=== PATIENT | male | born 1985 | race Caucasian/White ===

== ENCOUNTER 2019-05-09 14:04 | Emergency (ER) | payer OTHER ==
[2019-05-09 15:07] LABS: APPEARANCE,URINE SLIGHTLY-CLOUDY; BILIRUBIN,URINE NEGATIVE (NEGATIVE); COLOR,URINE AMBER; GLUCOSE, URINE NEGATIVE (NEGATIVE); KETONES,URINE 20 mg/dL (NEGATIVE); LEUKOCYTE ESTERASE,URINE NEGATIVE (NEGATIVE); NITRITE,URINE NEGATIVE (NEGATIVE); PROTEIN,URINE 100 mg/dL (NEGATIVE); URINE SPECIFIC GRAVITY 1.025
[2019-05-09 16:01] LABS: ABSOLUTE BASOPHILS # (AUTO) 0.1 10^3/uL (0.0-0.2); ABSOLUTE LYMPHOCYTES (AUTO) 2.5 10^3/uL (0.5-4.7); ABSOLUTE MONOCYTES (AUTO) 0.6 10^3/uL (0.1-1.4); ABSOLUTE NEUT (AUTO) 8.5 10^3/uL (1.7-8.2); EOSINOPHILS % (AUTO) 0.4 % (0-6); HEMATOCRIT 49.1 % (37.9-51.0); HEMOGLOBIN 16.7 g/dL (13.5-17.0); LYMPHOCYTES % (AUTO) 21.4 % (13-45); MEAN CORPUSCULAR HEMOGLOBIN 27.2 pg (27.0-33.4); MEAN CORPUSCULAR VOLUME 80 fl (80-97); MONOCYTES % (AUTO) 4.7 % (3-13); PLATELET COUNT 265 10^3/uL (150-450); RED BLOOD COUNT 6.14 10^6/uL (4.35-5.55); RED CELL DISTRIBUTION WIDTH 14.1 % (11.5-14.0); SEGMENTED NEUTROPHILS % (AUTO) 72.5 % (42-78); TOTAL CELLS COUNTED % (AUTO) 100 %; WHITE BLOOD COUNT 11.7 10^3/uL (4.0-10.5)
[2019-05-09 16:18] LABS: ALANINE AMINOTRANSFERASE 64 U/L (21-72); ALBUMIN 5.1 g/dL (3.5-5.0); ALKALINE PHOSPHATASE 79 U/L (38-126); ANION GAP 15 (5-19); ASPARTATE AMINO TRANSFERASE 41 U/L (17-59); BILIRUBIN,DIRECT 0.4 mg/dL (0.0-0.4); BILIRUBIN,TOTAL 1.8 mg/dL (0.2-1.3); BLOOD UREA NITROGEN 14 mg/dL (7-20); CARBON DIOXIDE 25 mmol/L (22-30); CHLORIDE 103 mmol/L (98-107); GLUCOSE 113 mg/dL (75-110); SODIUM 143.1 mmol/L (137-145); TOTAL PROTEIN 9.1 g/dL (6.3-8.2)
[2019-05-09 16:20] LABS: ACETAMINOPHEN < 10 ug/mL (10-30); ALCOHOL < 10 mg/dL (NONE DETECTED); SALICYLATE < 1.0 mg/dL (2.0-20.0)
[2019-05-09] MEDS ORDERED: LORAZEPAM 1 MG TABLET PO ONE ×2 (16:51→20:13)
--- NOTE | 2019-05-09 16:54 | PSYCHOLOGICAL NOTE ---
Psych Note - Psych Note Date seen by psych provider: 05/09/19 Time seen by psych provider: 15:30 Psych Note: Impression\plan: Patient is recommended for overnight mental health observation; this is voluntary. Patient does not meet IVC criteria per [facility] 122C as patient currently denies thoughts of wanting to harm himself and is demonstrating insight and requesting to stay for continued observation. Patient be reevaluated with probable discharge in the morning. Dr. Livingston was consulted and the care management of this patient; attending physicians in agreement with recommendations and disposition.
--- NOTE | 2019-05-09 18:39 | EKG REPORT ---
SEVERITY:- ABNORMAL ECG - SINUS RHYTHM PROBABLE LEFT ATRIAL ABNORMALITY NONSPECIFIC ST-T CHANGES ANTEROLATERAL LEADS : Confirmed by: Venkat Bello MD 09-May-2019 18:39:10
[2019-05-09 18:42] LABS: URINE AMPHETAMINES SCREEN NEGATIVE; URINE COCAINE SCREEN NEGATIVE; URINE MARIJUANA (THC) SCREEN NEGATIVE; URINE METHADONE SCREEN NEGATIVE; URINE PHENCYCLIDINE SCREEN NEGATIVE
[2019-05-09 18:43] LABS: URINE BARBITURATES SCREEN NEGATIVE
[2019-05-09 18:45] LABS: URINE BENZODIAZEPINES SCREEN NEGATIVE
--- NOTE | 2019-05-09 19:36 | ER Document Report ---
ED General - General Chief Complaint: Suicidal Ideation Stated Complaint: SUICIDAL IDEATION Time Seen by Provider: 05/09/19 14:31 Primary Care Provider: MIKEY VALDIVIA [Primary Care Provider] - Follow up as needed - [facility] Notes: Patient is a 33-year-old male who presents to the emergency department for evaluation. He has brought in with suicidal thoughts. Evidently his of 16 years told him today that she wanted a divorce. She told him via text message. At the time of my evaluation, the patient had also been served in [place] prior to a order, stating that he could have no contact with his or his children. The patient states he was seriously considering killing himself. He then picked up the phone and dialed 911. He states his father had a friend who killed himself, and he saw the havoc that rate with her lives. He denies any homicidal ideation. No visual or auditory hallucination. He states he has a history of depression but has not been treated or hospitalized in the past. - Related Data Allergies/Adverse Reactions: No Known Allergies Allergy (Unverified 05/09/19 16:54) Past Medical History - General Information source: Patient - Social History Smoking Status: Former Smoker Frequency of alcohol use: Occasional Drug Abuse: None Family History: Reviewed & Not Pertinent Patient has suicidal ideation: Yes Patient has homicidal ideation: No Renal/ Medical History: Denies: Hx Peritoneal Dialysis Review of Systems - Review of Systems Constitutional: No symptoms reported EENT: No symptoms reported Cardiovascular: No symptoms reported Respiratory: No symptoms reported Gastrointestinal: No symptoms reported Genitourinary: No symptoms reported Musculoskeletal: No symptoms reported Skin: No symptoms reported Neurological/Psychological: See HPI Physical Exam - Vital signs Vitals: Temp Pulse Resp BP Pulse Ox 98.2 F 102 H 18 175/123 H 97 05/09/19 14:13 05/09/19 14:13 05/09/19 14:13 05/09/19 14:13 05/09/19 14:13 - Notes Notes: This is a 33-year-old male who appears his stated age. He is very anxious, tapping his feet, eyes starting around the room. He is intermittently tearful. Vital signs reviewed, please refer to chart. Head is normocephalic, atraumatic. Pupils equal round, reactive to light. Neck is supple without meningismus. Heart is regular rate and rhythm. Lungs are clear to auscultation bilaterally. Abdomen is soft, nontender, normoactive bowel sounds throughout. Extremities without cyanosis, clubbing. Posterior calves are nontender. Peripheral pulses are equal. Skin is warm and dry. Patient is awake, alert, neurological exam is nonfocal. Course - Re-evaluation Re-evalutation: 05/09/19 19:35 Patient presents to the emergency department for evaluation. He has had suici anabelle ideation, but has not enacted any sort of plan. He states he has reasons not to. He was, however, agitated significantly by the ex partake order. He asked to be able to stay for further evaluation as he "does not feel safe" leaving here. Psychiatry evaluation performed, they were amenable to this plan. Patient is medically cleared, will be a psychiatric hold overnight. - Vital Signs Vital signs: Temp Pulse Resp BP Pulse Ox 98.2 F 102 H 18 175/123 H 97 05/09/19 14:13 05/09/19 14:13 05/09/19 14:13 05/09/19 14:13 05/09/19 14:13 - Laboratory Result Diagrams: 05/09/19 15:49 05/09/19 15:49 Laboratory results interpreted by me: 05/09/19 05/09/19 05/09/19 14:45 15:49 15:49 WBC 11.7 H RBC 6.14 H RDW 14.1 H Absolute Neutrophils 8.5 H Creatinine 1.27 H Glucose 113 H Total Bilirubin 1.8 H Total Protein 9.1 H Albumin 5.1 H Urine Protein 100 H Urine Ketones 20 H Urine Blood SMALL H Urine Urobilinogen 2.0 H Salicylates < 1.0 L Acetaminophen < 10 L - EKG Interpretation by Me Additional EKG results interpreted by me: 05/09/19 19:35 Sinus mechanism with a rate of 98 bpm. Normal axis and intervals, nonspecific ST changes, but no acute changes concerning for ischemia or infarction. No old studies available for comparison. Discharge - Discharge Clinical Impression: Suicidal ideation Condition: Stable Disposition: PSYCH HOSP/UNIT [facility]: [facility] [[facility]] - Follow up as needed
[2019-05-09] MEDS ORDERED: HYDROXYZINE PAMOATE 50 MG CAPSULE PO ONE (23:43)
--- NOTE | 2019-05-09 23:55 | ER Document Report ---
Doctor's Note Notes: 05/09/19 23:55 Patient feeling mildly anxious, asking for something to help him sleep. Patient agreeable to take an oral medication. States that Ativan gives him weird dreams and makes him wake up so we will try 50 mg of Vistaril by mouth. 05/10/19 01:39 Patient still awake, states that he is feeling significantly better and he has family support, states that his brother is willing to come from [place] to take him home and that he is frustrated by not being able to sleep here. Feels like his mind is racing. Patient is denying any continuing suicidal or homicidal ideations. We did discuss that he could potentially leave if he has a family member who is willing to pick him up and stay with him for the night or I could simply try giving him a sleeping pill. Patient is agreeable to trying an Ambien and if this does not work after approximately an hour to help him sleep then we will rediscussed the possibility of discharging him to home under the care of his family without behavioral health evaluation in the morning. Patient is quite calm, in no acute distress, states that he is talked to several family members who have reinforced to him that he has something to live for and that he is not alone. 05/10/19 01:49 Patient is changed his mind, no longer wants to try Ambien, would like to go home with his brother. Patient will be here in approximately 1 hour from [place]. Patient is safe for discharge to home. Patient does not appear to meet involuntary commitment criteria. No new medications will be started at this time. Information regarding IFS and mobile crisis will be given. 05/10/19 04:45 Patient's brother is here, they are ready to go home, they are in agreement with the plan and brother states that the patient will stay with him for the rest of the evening.
[2019-05-09 23:59] VITALS: BP 150/109
[2019-05-10] MEDS ORDERED: ZOLPIDEM TARTRATE 5 MG TABLET PO ONE (01:38)
== END 2019-05-10 04:50 | disposition home or self-care (01) ==
LOC: ER 14:04
DX: R45.851 Suicidal ideations (principal); Z63.5 Disruption of family by separation and divorce; Z87.891 Personal history of nicotine dependence
CPT/HCPCS: 36415; 80053; 80307; 81001; 85025; 93005; 93010; 99285